=== PATIENT | female | born 1945 | race Caucasian/White ===

== ENCOUNTER 2018-07-25 12:08 | Emergency (ER) | payer MEDICARE, OTHER ==
[2018-07-25 12:30] VITALS: BP 131/70
[2018-07-25] MEDS ORDERED: Aspirin 81 MG Tab.Chew PO ONE (12:54)
--- NOTE | 2018-07-25 13:24 | EDM.PDOC ---
ED HPI GENERAL MEDICAL PROBLEM - General Chief Complaint: Chest Pain Stated Complaint: SEVERE CHEST PAINS Time Seen by Provider: 07/25/18 12:40 - History of Present Illness INITIAL COMMENTS - FREE TEXT/NARRATIVE: 72-year-old female presents to the emergency room with chest pain. This pain started roughly about an hour before arrival it was somewhat sharp substernal and left-sided. It lasted 20-30 minutes. And then started to improve and at this point is gone. The patient has not had any history of coronary artery disease however at approximately her age both of her parents did. The patient does not smoke does not drink. She has had some problems with hyperlipidemia in the past no history of diabetes she is treated for hypothyroidism. When she had this pain she had significant shortness of breath and diaphoresis with this the pain did not radiate into her arm or neck or elsewhere. - Related Data Allergies Allergy/AdvReac Type Severity Reaction Status Date / Time feathers Allergy Shortness Verified 07/25/18 12:19 of Breath Latex, Natural Rubber Allergy Rash Verified 07/25/18 12:18 meprobamate Allergy Hives Verified 07/25/18 12:17 oxycodone Allergy Rash Verified 07/25/18 12:17 Penicillins Allergy Anaphylactic Verified 07/25/18 12:17 Shock Sulfa (Sulfonamide Allergy Hives Verified 07/25/18 12:17 Antibiotics) atorvastatin AdvReac Nausea Verified 07/25/18 12:17 atorvastatin calcium AdvReac Nausea Verified 07/25/18 12:17 [From Lipitor] codeine AdvReac Nausea Verified 07/25/18 12:17 simvastatin [From Zocor] AdvReac Nausea Verified 07/25/18 12:17 Home Meds: Home Meds Citrical + D 500 mg PO DAILY 10/26/14 [History] Levothyroxine 75 mcg PO DAILY 10/26/14 [History] Poloxamer [PLO Gel] 1 applic TOP DAILY PRN 10/26/14 [History] Spironolactone [Aldactone] 25 mg PO DAILY 10/26/14 [History] diphenhydrAMINE [Benadryl] 25 mg PO BEDTIME PRN 10/26/14 [History] Acetaminophen [Tylenol] 650 mg PO Q4H PRN #0 tablet 10/27/14 [Rx] Docusate Sodium [Colace] 100 mg PO BID PRN #0 cap 10/27/14 [Rx] Ibuprofen [Motrin] 400 mg PO Q6H PRN #0 tablet 10/27/14 [Rx] traMADol [Ultram] 50 mg PO Q6H #30 tablet 10/27/14 [Rx] Omeprazole 20 mg PO ASDIRECTED 07/25/18 [History] Past Medical History HEENT History: Reports: Cataract Cardiovascular History: Reports: Heart Murmur, High Cholesterol, Hypertension Respiratory History: Reports: Asthma, Bronchitis, Recurrent, Pneumonia, Recurrent, Sleep Apnea Other Respiratory History: has c-pap at home Gastrointestinal History: Reports: Chronic Constipation, GERD, Hemorrhoids Genitourinary History: Reports: UTI, Recurrent Musculoskeletal History: Reports: Arthritis, Back Pain, Chronic, Fibromyalgia Endocrine/Metabolic History: Reports: Hypothyroidism - Past Surgical History GI Surgical History: Reports: Appendectomy, Cholecystectomy, Colonoscopy, Hernia , Abdominal Musculoskeletal Surgical History: Reports: Other (See Below) Other Musculoskeletal Surgeries/Procedures:: low back surgery 2016 Social & Family History - Tobacco Use Smoking Status *Q: Never Smoker - Caffeine Use Caffeine Use: Reports: Coffee, Soda, Tea - Recreational Drug Use Recreational Drug Use: No ED ROS GENERAL - Review of Systems Review Of Systems: See Below Constitutional: Reports: No Symptoms HEENT: Reports: No Symptoms Respiratory: Reports: Shortness of Breath (With the chest pain) Cardiovascular: Reports: Chest Pain Endocrine: Reports: No Symptoms GI/Abdominal: Reports: No Symptoms : Reports: No Symptoms Musculoskeletal: Reports: No Symptoms Neurological: Reports: No Symptoms ED EXAM, GENERAL - Physical Exam Exam: See Below Exam Limited By: No Limitations General Appearance: Alert, No Apparent Distress Head: Atraumatic, Normocephalic Neck: Normal Inspection, Supple, Non-Tender, Full Range of Motion Respiratory/Chest: No Respiratory Distress, Lungs Clear, Normal Breath Sounds Cardiovascular: Regular Rate, Rhythm, No Murmur, Other (He has edema in both lower extremities right more so than left) GI/Abdominal: Normal Bowel Sounds, Soft, Other (Palpation is uncomfortable but nothing out of the ordinary no rigidity rebound or guarding) Back Exam: Normal Inspection. No: CVA Tenderness (L), CVA Tenderness (R) Extremities: Increased Warmth Neurological: Alert, Normal Cognition Psychiatric: Normal Affect, Normal Mood Skin Exam: Warm, Dry, Intact Course - Vital Signs Last Recorded V/S: Last Vital Signs Temp 36.1 C 07/25/18 12:29 Pulse 105 H 07/25/18 12:29 Resp 20 07/25/18 12:29 BP 131/70 07/25/18 12:29 Pulse Ox 98 07/25/18 12:29 - Orders/Labs/Meds Orders: Active Orders 24 hr Category Date Time Status EKG 12 Lead [EKG Documentation Completion] [RC] STAT Care 07/25/18 12:51 Active EKG Documentation Completion [RC] ASDIRECTED Care 07/25/18 12:40 Active EKG 12 Lead [EK] Stat Ther 07/25/18 12:40 Ordered Labs: Laboratory Tests 07/25/18 07/25/18 07/25/18 Range/Units 12:15 12:15 12:15 WBC 8.49 (3.98-10.04) K/mm3 RBC 4.45 (3.98-5.22) M/mm3 Hgb 13.3 (11.2-15.7) gm/L Hct 40.4 (34.1-44.9) % MCV 90.8 (79.4-94.8) fl MCH 29.9 (25.6-32.2) pg MCHC 32.9 (32.2-35.5) g/dl RDW Std Deviation 44.2 (36.4-46.3) fL Plt Count 340 (182-369) K/mm3 MPV 9.9 (9.4-12.3) fl Neutrophils % (Manual) 52 (40-60) % Band Neutrophils % 0 (0-10) % Lymphocytes % (Manual) 40 (20-40) % Atypical Lymphs % 0 % Monocytes % (Manual) 6 (2-10) % Eosinophils % (Manual) 2 (0.7-5.8) % Basophils % (Manual) 0 L (0.1-1.2) Platelet Estimate Adequate RBC Morph Comment Normal PT 10.3 (9.5-12.1) SECONDS INR 0.94 APTT 27 (24-31) SECONDS Sodium 136 (136-145) mEq/L Potassium 3.5 (3.5-5.1) mEq/L Chloride 100 (98-107) mEq/L Carbon Dioxide 25 (21-32) mEq/L Anion Gap 14.5 (5-15) BUN 10 (7-18) mg/dL Creatinine 1.2 H (0.55-1.02) mg/dL Est Cr Clr Drug Dosing 29.54 mL/min Estimated GFR (MDRD) 44 (>60) mL/min BUN/Creatinine Ratio 8.3 L (14-18) Glucose 122 H (83-115) mg/dL Calcium 9.3 (8.5-10.1) mg/dL Total Bilirubin 0.6 (0.2-1.0) mg/dL AST 52 H (15-37) U/L ALT 41 (14-59) U/L Alkaline Phosphatase 89 (46-116) U/L Troponin I < 0.017 (0.00-0.056) ng/mL Total Protein 7.2 (6.4-8.2) g/dl Albumin 4.0 (3.4-5.0) g/dl Globulin 3.2 gm/dL Albumin/Globulin Ratio 1.3 (1-2) 07/25/18 Range/Units 15:02 WBC (3.98-10.04) K/mm3 RBC (3.98-5.22) M/mm3 Hgb (11.2-15.7) gm/L Hct (34.1-44.9) % MCV (79.4-94.8) fl MCH (25.6-32.2) pg MCHC (32.2-35.5) g/dl RDW Std Deviation (36.4-46.3) fL Plt Count (182-369) K/mm3 MPV (9.4-12.3) fl Neutrophils % (Manual) (40-60) % Band Neutrophils % (0-10) % Lymphocytes % (Manual) (20-40) % Atypical Lymphs % % Monocytes % (Manual) (2-10) % Eosinophils % (Manual) (0.7-5.8) % Basophils % (Manual) (0.1-1.2) Platelet Estimate RBC Morph Comment PT (9.5-12.1) SECONDS INR APTT (24-31) SECONDS Sodium (136-145) mEq/L Potassium (3.5-5.1) mEq/L Chloride (98-107) mEq/L Carbon Dioxide (21-32) mEq/L Anion Gap (5-15) BUN (7-18) mg/dL Creatinine (0.55-1.02) mg/dL Est Cr Clr Drug Dosing mL/min Estimated GFR (MDRD) (>60) mL/min BUN/Creatinine Ratio (14-18) Glucose (83-115) mg/dL Calcium (8.5-10.1) mg/dL Total Bilirubin (0.2-1.0) mg/dL AST (15-37) U/L ALT (14-59) U/L Alkaline Phosphatase (46-116) U/L Troponin I < 0.017 (0.00-0.056) ng/mL Total Protein (6.4-8.2) g/dl Albumin (3.4-5.0) g/dl Globulin gm/dL Albumin/Globulin Ratio (1-2) Meds: Medications Discontinued Medications Generic Name Dose Route Start Last Admin Trade Name Freq PRN Reason Stop Dose Admin Aspirin 324 mg 07/25/18 12:54 07/25/18 13:10 Aspirin PO 07/25/18 12:55 324 mg ONETIME ONE Administration - Re-Assessments/Exams Free Text/Narrative Re-Assessment/Exam: 07/25/18 16:46 Patient was evaluated. First EKG was slightly tachycardic second EKG was repeated but 40 minutes later easy to interpret no acute ST-T wave changes ischemia. Initial troponin was negative second troponin was negative. We have her scheduled for a stress test tomorrow at 7:15. We've discussed discharge instructions stress test with the patient disposition and further evaluation was discussed with the hospitalist who felt that outpatient treatment was the most appropriate. Departure - Departure Time of Disposition: 16:48 Disposition: Home, Self-Care 01 Clinical Impression: Chest pain Referrals: Shelbie York PA-C [Primary Care Provider] - Forms: ED Department Discharge Additional Instructions: Return to the emergency room with any questions problems worsening symptoms. Take a baby aspirin daily 81 mg. Return to the hospital at 7:15 tomorrow for your stress test. No caffeine for 12 hours prior nothing to eat or drink after midnight. - My Orders Last 24 Hours: My Active Orders 07/25/18 12:40 EKG Documentation Completion [RC] ASDIRECTED EKG 12 Lead [EK] Stat 07/25/18 12:51 EKG 12 Lead [EKG Documentation Completion] [RC] STAT - Assessment/Plan Last 24 Hours: My Active Orders 07/25/18 12:40 EKG Documentation Completion [RC] ASDIRECTED EKG 12 Lead [EK] Stat 07/25/18 12:51 EKG 12 Lead [EKG Documentation Completion] [RC] STAT
--- NOTE | 2018-07-25 13:52 | CR ---
Chest: Portable view of the chest was obtained. Comparison: Prior chest x-ray of 06/09/17. Heart size and mediastinum are normal. Lungs are clear. Bony structures are unremarkable. Impression: 1. Nothing acute is seen on portable chest x-ray. Diagnostic code #1
== END 2018-07-25 16:59 | disposition home or self-care (01) ==
LOC: JD.ED 12:08
DX: R07.9 Chest pain, unspecified (principal); I10 Essential (primary) hypertension; E78.00 Pure hypercholesterolemia, unspecified; E03.9 Hypothyroidism, unspecified; Z91.09 Other allergy status, other than to drugs and biological substances; Z91.040 Latex allergy status; Z88.5 Allergy status to narcotic agent; Z88.2 Allergy status to sulfonamides; Z88.6 Allergy status to analgesic agent; Z79.899 Other long term (current) drug therapy; Z88.8 Allergy status to other drugs, medicaments and biological substances
CPT/HCPCS: 36415; 71045; 80053; 84484; 85007; 85027; 85610; 85730; 93005; 99285; A9270; 93010; 99284

== ENCOUNTER 2018-12-14 10:47 | Emergency (ER) | payer MEDICARE, OTHER ==
--- NOTE | 2018-12-14 11:08 | EDM.PDOC ---
ED HPI GENERAL MEDICAL PROBLEM - General Chief Complaint: Abdominal Pain Stated Complaint: [facility] Time Seen by Provider: 12/14/18 11:08 Source of Information: Reports: Patient History Limitations: Reports: No Limitations - History of Present Illness INITIAL COMMENTS - FREE TEXT/NARRATIVE: 73-year-old female arrives via [facility] for evaluation and treatment of epigastric and chest pain. Patient reports the pain started suddenly after eating breakfast. She had toast with a little bit of butter and half of a chocolate chip muffin when she developed sudden onset of severe epigastric pain radiating to her chest. She reports no radiation into her back, neck or arms. She states that she felt like she needed to belch but couldn't. She describes the pain initially as a sharp stabbing sensation that then turned into a squeezing sensation. Lasted in total maybe 30 minutes. She was able to take some Tums and take a few sips of diet Coke. Upon arrival of EMS she was diaphoretic and nauseated. She reports she was short of breath due to the pain. No vomiting. By the time she arrived in the ER her symptoms have now subsided and she feels "great ". Reports she's had an episode similar to this in the past. Review of her records show she was seen in July 2018 for similar episode. She states that this was worse than her previous episode. She has had a EGD in the past as well as colonoscopy and states this has been several years. She was told she has a stomach ulcer is unaware if she has any hiatal hernia. She denies feeling like the food was stuck. She was able to swallow her secretions, Coke and Tums without any problems. She denies any cardiac history. No history of previous MIs or arrhythmias. She was told before that she has a heart murmmur. She is unsure she's ever had an echocardiogram to evaluate this. No history of diabetes No history of any tobacco use. Primary care provider is Shelbie York. Onset: Today, Sudden - Related Data Allergies Allergy/AdvReac Type Severity Reaction Status Date / Time feathers Allergy Shortness Verified 12/14/18 10:51 of Breath Latex, Natural Rubber Allergy Rash Verified 12/14/18 10:51 meprobamate Allergy Hives Verified 12/14/18 10:51 oxycodone Allergy Rash Verified 12/14/18 10:51 Penicillins Allergy Anaphylactic Verified 12/14/18 10:51 Shock Sulfa (Sulfonamide Allergy Hives Verified 12/14/18 10:51 Antibiotics) atorvastatin AdvReac Nausea Verified 12/14/18 10:51 atorvastatin calcium AdvReac Nausea Verified 12/14/18 10:51 [From Lipitor] codeine AdvReac Nausea Verified 12/14/18 10:51 simvastatin [From Zocor] AdvReac Nausea Verified 12/14/18 10:51 Home Meds: Home Meds Citrical + D 500 mg PO DAILY 10/26/14 [History] Levothyroxine 75 mcg PO DAILY 10/26/14 [History] Poloxamer [PLO Gel] 1 applic TOP DAILY PRN 10/26/14 [History] Spironolactone [Aldactone] 25 mg PO DAILY 10/26/14 [History] diphenhydrAMINE [Benadryl] 25 mg PO BEDTIME PRN 10/26/14 [History] Acetaminophen [Tylenol] 650 mg PO Q4H PRN #0 tablet 10/27/14 [Rx] Docusate Sodium [Colace] 100 mg PO BID PRN #0 cap 10/27/14 [Rx] Ibuprofen [Motrin] 400 mg PO Q6H PRN #0 tablet 10/27/14 [Rx] traMADol [Ultram] 50 mg PO Q6H #30 tablet 10/27/14 [Rx] Omeprazole 20 mg PO ASDIRECTED 07/25/18 [History] Past Medical History HEENT History: Reports: Cataract Cardiovascular History: Reports: Heart Murmur, High Cholesterol, Hypertension Respiratory History: Reports: Asthma, Bronchitis, Recurrent, Pneumonia, Recurrent, Sleep Apnea Other Respiratory History: has c-pap at home Gastrointestinal History: Reports: Chronic Constipation, GERD, Hemorrhoids Genitourinary History: Reports: UTI, Recurrent Musculoskeletal History: Reports: Arthritis, Back Pain, Chronic, Fibromyalgia Endocrine/Metabolic History: Reports: Hypothyroidism - Past Surgical History GI Surgical History: Reports: Appendectomy, Cholecystectomy, Colonoscopy, Hernia , Abdominal Musculoskeletal Surgical History: Reports: Other (See Below) Other Musculoskeletal Surgeries/Procedures:: low back surgery 2017 Social & Family History - Caffeine Use Caffeine Use: Reports: Coffee, Soda, Tea ED ROS GENERAL - Review of Systems Review Of Systems: See Below Constitutional: Denies: Fever Respiratory: Reports: Shortness of Breath (initally, now resolves), Cough (due to allergiies) Cardiovascular: Reports: Chest Pain (initally, now resolves, no radiation into the back, neck or arms) GI/Abdominal: Reports: Abdominal Pain (epigastric), Nausea (inially, now resolved). Denies: Vomiting Musculoskeletal: Denies: Neck Pain, Arm Pain, Back Pain ED EXAM, GI/ABD - Physical Exam Exam: See Below Exam Limited By: No Limitations General Appearance: Alert, WD/WN, No Apparent Distress, Obese Ears: Normal External Exam Nose: Normal Inspection Throat/Mouth: Normal Inspection, Normal Oropharynx, Normal Voice, No Airway Compromise Neck: Normal Inspection Respiratory/Chest: No Respiratory Distress, Lungs Clear, Normal Breath Sounds Cardiovascular: Normal Peripheral Pulses, Regular Rate, Rhythm, No Murmur GI/Abdominal Exam: Normal Bowel Sounds, Soft, Tender (minimal to the epigastric region) Neurological: Alert, Oriented, Normal Cognition Psychiatric: Normal Affect, Normal Mood Skin Exam: Warm, Dry, Normal Color EKG INTERPRETATION EKG Date: 12/14/18 Time: 10:55 Rhythm: NSR Rate (Beats/Min): 88 [place]: Normal P-Wave: Present QRS: Normal ST-T: Normal QT: Normal EKG Interpretation Comments: normal sinus rhythm at 80 bpm. No ectopy. Positive left atrial enlargement. First-degree AV block. No ischemia changes. Late transition. No left axis or right axis deviation. No left ventricular or right ventricular hypertrophy. No interventricular conduction delay. QTC within normal limits a QTC of 455. reviewed by Myself and Dr. Perkins. Course - Vital Signs Last Recorded V/S: Last Vital Signs Temp 97.2 F 12/14/18 15:45 Pulse 77 12/14/18 15:45 Resp 20 12/14/18 15:45 BP 145/70 H 12/14/18 15:45 Pulse Ox 98 12/14/18 15:45 - Orders/Labs/Meds Orders: Active Orders 24 hr Category Date Time Status Cardiac Monitoring [RC] . DIRECTED Care 12/14/18 11:49 Active EKG 12 Lead [EKG Documentation Completion] [RC] STAT Care 12/14/18 10:59 Active Peripheral IV Care [RC] . DIRECTED Care 12/14/18 11:49 Active Peripheral IV Insertion Adult [OM.PC] Routine Oth 12/14/18 11:48 Ordered Labs: Laboratory Tests 12/14/18 12/14/18 12/14/18 Range/Units 11:03 11:03 14:05 WBC 6.87 (3.98-10.04) K/mm3 RBC 4.60 (3.98-5.22) M/mm3 Hgb 13.4 (11.2-15.7) gm/L Hct 40.8 (34.1-44.9) % MCV 88.7 (79.4-94.8) fl MCH 29.1 (25.6-32.2) pg MCHC 32.8 (32.2-35.5) g/dl RDW Std Deviation 43.9 (36.4-46.3) fL Plt Count 334 (182-369) K/mm3 MPV 9.7 (9.4-12.3) fl Neut % (Auto) 53.3 (34.0-71.1) % Lymph % (Auto) 37.3 (19.3-51.7) % [place] % (Auto) 6.7 (4.7-12.5) % Eos % (Auto) 2.0 (0.7-5.8) Baso % (Auto) 0.4 (0.1-1.2) % Neut # (Auto) 3.66 (1.56-6.13) K/mm3 Lymph # (Auto) 2.56 (1.18-3.74) K/mm3 [place] # (Auto) 0.46 H (0.24-0.36) K/mm3 Eos # (Auto) 0.14 (0.04-0.36) K/mm3 Baso # (Auto) 0.03 (0.01-0.08) K/mm3 Sodium 136 (136-145) mEq/L Potassium 4.0 (3.5-5.1) mEq/L Chloride 101 (98-107) mEq/L Carbon Dioxide 26 (21-32) mEq/L Anion Gap 13.0 (5-15) BUN 13 (7-18) mg/dL Creatinine 1.0 (0.55-1.02) mg/dL Est Cr Clr Drug Dosing 36.68 mL/min Estimated GFR (MDRD) 54 (>60) mL/min BUN/Creatinine Ratio 13.0 L (14-18) Glucose 149 H (83-115) mg/dL Calcium 9.3 (8.5-10.1) mg/dL Total Bilirubin 0.6 (0.2-1.0) mg/dL AST 46 H (15-37) U/L ALT 37 (14-59) U/L Alkaline Phosphatase 102 (46-116) U/L Troponin I < 0.017 < 0.017 (0.00-0.056) ng/mL C-Reactive Protein < 0.2 (<1.0) mg/dL Total Protein 7.3 (6.4-8.2) g/dl Albumin 3.9 (3.4-5.0) g/dl Globulin 3.4 gm/dL Albumin/Globulin Ratio 1.2 (1-2) Lipase 169 (73-393) U/L Meds: Medications Discontinued Medications Generic Name Dose Route Start Last Admin Trade Name Freq PRN Reason Stop Dose Admin Famotidine 20 mg 12/14/18 11:49 12/14/18 12:11 Pepcid IVPUSH 12/14/18 11:50 20 mg ONETIME ONE Administration Sodium Chloride 10 ml 12/14/18 11:49 12/14/18 12:13 Saline Flush FLUSH 10 ml ASDIRECTED PRN Administration Keep Vein Open - Radiology Interpretation Free Text/Narrative:: Chest: Two views of the chest were obtained. Comparison: Prior chest x-ray of 07/25/18. Heart size and mediastinum are normal. Lungs are clear. Scattered degenerative endplate spurring is noted within the spine. Impression: 1. Nothing acute is seen on two-view chest x-ray. Head CT Technique: Multiple axial sections through the brain were obtained. Intravenous contrast was not utilized. Comparison: No prior intracranial imaging. Findings: Ventricles along with basal cisterns and sulci over the convexities are mildly prominent. No abnormal parenchymal densities are seen. No evidence of intracranial hemorrhage. No midline shift or mass effect is seen. Bone window settings were reviewed which show no acute calvarial abnormality. Possible scalp lipoma is noted within the right frontal scalp. Visualized paranasal sinuses and mastoid sinuses show nothing acute. Impression: 1. Possible lipoma within the right frontal scalp which is incidental. 2. Mild generalized atrophy. 3. No acute intracranial abnormality is identified. - Re-Assessments/Exams Free Text/Narrative Re-Assessment/Exam: 12/14/18 13:10 I reviewed the labs, EKG and imaging with the patient and her . Plan will be to repeat the troponin at 3 hours. She continues to have no pain and feels fine since entering the ER. Patient's then tells me about little over a [place] where she did not know where she was or her name. She was not seen for this. Lasted maybe 3 minutes. She has not had any deficits since has not had any recurrence of her episodes. She did not appreciate any weakness, however, she was rather out of sorts. Concerned that she may have had a TIA. She reports that she has high cholesterol and high per tension. She does not take statins due to myalgias. Plan will be to obtain a head CT. She then will require an echocardiogram and a carotid artery ultrasound to further TIA. She states that she is unable to do an MRI here she needs an open MRI. 12/14/18 15:21 repeat troponin within normal limits at less than 0.017. Head CT is negative. ABCD2 score 2 pts, based on history. able to get a carotid artery ultrasound and echocardiogram for this Wednesday. Offered observation stay but patient does not want to stay and I do feel that this is appropriate given she is more than a month out from a suspected TIA based on history only. I will have her follow- up with primary care provider. They may need to put an order for an MRI in [place]. Discharge instructions as documented. Departure - Departure Time of Disposition: 15:29 Disposition: Home, Self-Care 01 Condition: Fair Clinical Impression: GERD (gastroesophageal reflux disease) - Discharge Information *PRESCRIPTION DRUG MONITORING PROGRAM REVIEWED*: No *COPY OF PRESCRIPTION DRUG MONITORING REPORT IN PATIENT SIDDHARTH: No Instructions: Gastroesophageal Reflux Disease, Adult, [id number] Referrals: Shelbie York PA-C [Primary Care Provider] - Dennys Busby MD [Physician] - Forms: ED Department Discharge Additional Instructions: Recommend taking your statin, even if this is just once a week. Make sure you are drinking plenty of fluids. Follow-up with primary care soon as you're able to. you may need to have an upper endoscopy to reevaluate your stomach. An outpatient order has been placed. An echocardiogram and carotid artery ultrasound this 12/16/18 at 12:30. Present to [facility]. These results will be sent to Dr. Leyva. Please return to the ER for symptoms change or worsen. - My Orders Last 24 Hours: My Active Orders 12/14/18 10:59 EKG 12 Lead [EKG Documentation Completion] [RC] STAT 12/14/18 11:48 Peripheral IV Insertion Adult [OM.PC] Routine 12/14/18 11:49 Cardiac Monitoring [RC] . DIRECTED Peripheral IV Care [RC] . DIRECTED - Assessment/Plan Last 24 Hours: My Active Orders 12/14/18 10:59 EKG 12 Lead [EKG Documentation Completion] [RC] STAT 12/14/18 11:48 Peripheral IV Insertion Adult [OM.PC] Routine 12/14/18 11:49 Cardiac Monitoring [RC] . DIRECTED Peripheral IV Care [RC] . DIRECTED
[2018-12-14] MEDS ORDERED: Sodium Chloride 0.9% 10 ML Syringe FLUSH PRN (11:49)
[2018-12-14] MEDS ORDERED: Famotidine 20 MG/2 ML SDV IVPUSH ONE (11:49)
--- NOTE | 2018-12-14 13:39 | CR ---
Chest: Two views of the chest were obtained. Comparison: Prior chest x-ray of 07/25/18. Heart size and mediastinum are normal. Lungs are clear. Scattered degenerative endplate spurring is noted within the spine. Impression: 1. Nothing acute is seen on two-view chest x-ray. Diagnostic code #1
--- NOTE | 2018-12-14 14:12 | CT ---
Head CT Technique: Multiple axial sections through the brain were obtained. Intravenous contrast was not utilized. Comparison: No prior intracranial imaging. Findings: Ventricles along with basal cisterns and sulci over the convexities are mildly prominent. No abnormal parenchymal densities are seen. No evidence of intracranial hemorrhage. No midline shift or mass effect is seen. Bone window settings were reviewed which show no acute calvarial abnormality. Possible scalp lipoma is noted within the right frontal scalp. Visualized paranasal sinuses and mastoid sinuses show nothing acute. Impression: 1. Possible lipoma within the right frontal scalp which is incidental. 2. Mild generalized atrophy. 3. No acute intracranial abnormality is identified. Diagnostic code #2
[2018-12-14 16:34] VITALS: BP 145/70
== END 2018-12-14 15:45 | disposition home or self-care (01) ==
LOC: SUPCPDRO 10:47 → JD.ED 10:47
DX: K21.9 Gastro-esophageal reflux disease without esophagitis (principal); I10 Essential (primary) hypertension; E78.00 Pure hypercholesterolemia, unspecified; J45.909 Unspecified asthma, uncomplicated; E03.9 Hypothyroidism, unspecified; Z79.899 Other long term (current) drug therapy; Z91.09 Other allergy status, other than to drugs and biological substances; Z91.040 Latex allergy status; Z88.6 Allergy status to analgesic agent; Z88.1 Allergy status to other antibiotic agents; Z88.2 Allergy status to sulfonamides; Z88.8 Allergy status to other drugs, medicaments and biological substances
CPT/HCPCS: 36415; 70450; 71046; 80053; 83690; 84484; 85025; 86140; 93005; 96374; 99285; J3490

== ENCOUNTER 2021-05-01 07:11 | Day surgery (SDC) | payer MEDICARE, OTHER ==
[~2021-05-01 07:11] MED LIST: Lactated Ringers 1,000 ML IV SCH; Lidocaine 1%/Sod Bicarbonate in NS 8.4% 1 ML Syringe IDERM PRN; Propofol 200 MG/20 ML SDV ONE; Sodium Chloride 0.9% 10 ML Syringe FLUSH SCH
[2021-05-01] MEDS ORDERED: Propofol 200 MG/20 ML SDV ONE (08:54)
[2021-05-01 10:05] VITALS: BP 116/58; PULSE 82
== END 2021-05-01 10:29 | disposition home or self-care (01) ==
LOC: JD.SDS 07:11
PROVIDERS: ATTEND Surgery
DX: D12.0 Benign neoplasm of cecum (principal); K57.30 Diverticulosis of large intestine without perforation or abscess without bleeding; K21.9 Gastro-esophageal reflux disease without esophagitis; K44.9 Diaphragmatic hernia without obstruction or gangrene; K21.00 Gastro-esophageal reflux disease with esophagitis, without bleeding; M81.0 Age-related osteoporosis without current pathological fracture; I10 Essential (primary) hypertension; E78.5 Hyperlipidemia, unspecified; E03.9 Hypothyroidism, unspecified; G47.33 Obstructive sleep apnea (adult) (pediatric); E66.3 Overweight; Z88.8 Allergy status to other drugs, medicaments and biological substances; Z88.0 Allergy status to penicillin; Z91.040 Latex allergy status; Z88.2 Allergy status to sulfonamides; E55.9 Vitamin D deficiency, unspecified; Z90.49 Acquired absence of other specified parts of digestive tract; Z98.890 Other specified postprocedural states; Z68.36 Body mass index [BMI] 36.0-36.9, adult
CPT/HCPCS: 36415; 43239; 45380; 80053; J2370; J2704; J7120; 00813; 99100

== ENCOUNTER 2022-08-26 10:18 | Emergency (ER) | payer MEDICARE, OTHER ==
[2022-08-26 10:44] LABS: BASOPHILS ABSOLUTE AUTO 0.03 K/mm3 (0.01-0.08); BASOPHILS PERCENT AUTO 0.4 % (0.1-1.2); EOSINOPHILS ABSOLUTE AUTO 0.05 K/mm3 (0.04-0.36); EOSINOPHILS PERCENT AUTO 0.7 (0.7-5.8); HEMATOCRIT 38.7 % (34.1-44.9); HEMOGLOBIN 12.9 gm/dl (11.2-15.7); IMMATURE GRAN ABSOLUTE AUTO 0.01 K/mm3 (0.00-0.10); IMMATURE GRAN PERCENT AUTO 0.1 % (<=1.0); LYMPHOCYTES ABSOLUTE AUTO 1.01 K/mm3 (1.18-3.74); LYMPHOCYTES PERCENT AUTO 14.3 % (19.3-51.7); MEAN CORPUSCULAR HGB CONC 33.3 g/dl (32.2-35.5); MEAN PLATELET VOLUME 9.2 fl (9.4-12.3); MONOCYTES ABSOLUTE AUTO 0.73 K/mm3 (0.24-0.36); MONOCYTES PERCENT AUTO 10.4 % (4.7-12.5); NEUTROPHILS ABSOLUTE AUTO 5.22 K/mm3 (1.56-6.13); NEUTROPHILS PERCENT AUTO 74.1 % (34.0-71.1); PLATELET COUNT,PLT 330 K/mm3 (182-369); WHITE BLOOD CELL COUNT,WBC 7.05 K/mm3 (3.98-10.04)
[2022-08-26 11:16] LABS: A/G RATIO 1.2 (1-2); ALBUMIN 3.8 g/dl (3.4-5.0); ANION GAP 13.5 (5-15); BILIRUBIN TOTAL 0.8 mg/dL (0.2-1.0); CREATININE 1.2 mg/dL (0.55-1.02); EST CRCL DRUG DOSING (CG) 30.56 mL/min; POTASSIUM,K 3.5 mEq/L (3.5-5.1); PROTEIN TOTAL,TP 7.1 g/dl (6.4-8.2)
[2022-08-26 11:17] LABS: CKMB 1.6 ng/ml (0-3.6)
[2022-08-26] MEDS ORDERED: Alum Hydrox/Mag Hydrox/Simeth 30 ML, Lidocaine 2% 15 ML PO ONE ×2 (11:36)
[2022-08-26 11:58] VITALS: BP 131/56; PULSE 64
== END 2022-08-26 18:00 | disposition home or self-care (01) ==
LOC: JD.ED 10:18
DX: K21.9 Gastro-esophageal reflux disease without esophagitis (principal); E78.00 Pure hypercholesterolemia, unspecified; I10 Essential (primary) hypertension; E03.9 Hypothyroidism, unspecified; Z91.040 Latex allergy status; Z88.8 Allergy status to other drugs, medicaments and biological substances; Z88.5 Allergy status to narcotic agent; Z88.0 Allergy status to penicillin; Z88.2 Allergy status to sulfonamides; Z79.899 Other long term (current) drug therapy
CPT/HCPCS: 36415; 71045; 80053; 82550; 82553; 84484; 85025; 93005; 99284; A9270; 93010; 99283